=== PATIENT | female | born 1980 | race Caucasian/White ===

== ENCOUNTER 2016-07-12 16:47 | Emergency (ER) | payer BC ==
[~2016-07-12] VITALS: Ht 182.9 cm; Wt 110.0 kg
[~2016-07-12 16:47] MED LIST: CIPR500T4 PO; CLON0.5T PO; PERC5TAB12 PO
[2016-07-12 16:49] VITALS: BP 137/101; PULSE 94; RESP 12; TEMP 98.3; O2SAT 96
== END 2016-07-12 18:50 | disposition left against medical advice (07) ==
LOC: NED 16:47
DX: R10.9 Unspecified abdominal pain (principal)
CPT/HCPCS: 99281